=== PATIENT | male | born 1975 | race Caucasian/White ===

== ENCOUNTER 2017-05-24 17:06 | Emergency (ER) | payer BC, OTHER ==
[~2017-05-24] VITALS: Ht 182.9 cm; Wt 83.9 kg
[2017-05-24] MEDS ORDERED: SODIUM CHLORIDE 0.9% 1,000 ML IVB ONE (17:19)
[2017-05-24] MEDS ORDERED: ASPirin 81 mg TAB PO ONE (17:30)
[2017-05-24] MEDS ORDERED: METOPROLOL TARTRATE 1MG/1ML-5ML VIAL IV ONE (17:30)
[2017-05-24] MEDS ORDERED: PRAV20TA3 PO (18:04)
[2017-05-24] MEDS ORDERED: ANAS1TAB6 PO (18:04)
[2017-05-24] MEDS ORDERED: HCTZ25T PO (18:04)
[2017-05-24] MEDS ORDERED: LOSA50TA6 PO (18:04)
[2017-05-24 18:11] LABS: Basophils # (auto) 0 uL; Basophils % (auto) 0.5 % (0.0-2.0); Eosinophils # (auto) 0 uL; Eosinophils % (auto) 0.4 % (0.0-7.0); Hematocrit 50.4 % (41.0-53.0); Hemoglobin 17.5 g/dL (13.5-17.5); Lymphocytes # (auto) 1.6 uL; Lymphocytes % (auto) 20.1 % (10.0-50.0); Mean Corpuscular Hemoglobin 31.6 pg (28.0-32.0); Mean Corpuscular Hgb Conc. 34.7 g/dL (32.0-36.0); Mean Corpuscular Volume 91.2 fL (80.0-100.0); Mean Platelet Volume 8.5 fL (7.4-10.4); Monocytes # (auto) 0.7 uL; Monocytes % (auto) 9.1 % (0.0-12.0); Neutrophils # (auto) 5.6 uL; Neutrophils % (auto) 69.9 % (37.0-80.0); Nucleated Red Blood Cells % 0.3 %; Platelet Count (auto) 250 10^3/uL (140-450); Red Cell Distribution Width 13.1 % (11.6-16.0)
[2017-05-24 18:22] LABS: INR 1.04 (0.9-1.15); Partial Thromboplastin Time 29.9 sec (22.64-33.71); Prothrombin Time 11.3 sec (9.37-12.3)
[2017-05-24 18:42] LABS: B-Type Natriuretic Peptide 0.14 pg/mL (0-100)
[2017-05-24 18:49] LABS: Temperature: 23.3 C (20.0-25.0)
[2017-05-24 19:08] LABS: Albumin 3.9 g/dL (3.4-5.0); BUN/Creatinine Ratio 13.8; Blood Urea Nitrogen 18 mg/dL (7-18); Calcium 8.6 mg/dL (8.5-10.1); Carbon Dioxide 26 mmol/L (21-32); GFR African American 78 mL/min; GFR Non-African American 64 mL/min; Glucose 104 mg/dL (74-106); Magnesium 2.7 mg/dL (1.6-2.6)
[2017-05-24 19:11] LABS: Anion Gap 9 (5-15); Aspartate Aminotransferase 32 U/L (15-37); Chloride 105 mmol/L (98-107); Potassium 4.1 mmol/L (3.5-5.1); Sodium 140 mmol/L (136-145); Total Protein 7.9 g/dL (6.4-8.2)
[2017-05-24 19:14] LABS: Alkaline Phosphatase 72 U/L (45-117); Bilirubin, Total 0.4 mg/dL (0.2-1.0)
[2017-05-24] MEDS ORDERED: METOPROLOL TARTRATE 25 MG TAB PO ONE (19:45)
[2017-05-24 23:15] VITALS: BP 127/62
== END 2017-05-24 23:28 | disposition short-term general hospital (02) ==
LOC: EDBD 17:06 → ER 17:19
DX: I48.91 Unspecified atrial fibrillation (principal); E78.5 Hyperlipidemia, unspecified; I10 Essential (primary) hypertension
CPT/HCPCS: 36415; 71010; 80053; 83735; 83880; 84484; 85025; 85610; 85730; 93005; 96361; 96374; 99291; J7030

== ENCOUNTER 2018-01-28 11:02 | Emergency (ER) | payer OTHER ==
[~2018-01-28] VITALS: Ht 185.4 cm; Wt 124.7 kg
[~2018-01-28 11:02] MED LIST: ANAS1TAB6 PO; HCTZ25T PO; LOSA50TA6 PO; PRAV20TA3 PO
[2018-01-28 11:13] VITALS: BP 151/98
[2018-01-28] MEDS ORDERED: KETOROLAC TROMETH 60MG/2ML VIAL IM ONE (11:30)
== END 2018-01-28 12:47 | disposition home or self-care (01) ==
LOC: ER 11:05
DX: S16.1XXA Strain of muscle, fascia and tendon at neck level, initial encounter (principal); M50.10 Cervical disc disorder with radiculopathy, unspecified cervical region; I10 Essential (primary) hypertension; E78.5 Hyperlipidemia, unspecified; X58.XXXA Exposure to other specified factors, initial encounter; Y93.H2 Activity, gardening and landscaping; Y99.8 Other external cause status; Y92.89 Other specified places as the place of occurrence of the external cause
CPT/HCPCS: 72125; 96372; 99284; J1885